=== PATIENT | male | born 1970 ===

== ENCOUNTER 2021-02-16 10:35 | Emergency (ER) | payer SELFPAY ==
[~2021-02-16] VITALS: Ht 177.8 cm; Wt 105.6 kg
[2021-02-16 10:40] VITALS: BP 184/93
[2021-02-16] MEDS ORDERED: DIPH,PERTUSS(ACELL),TET VAC/PF 0.5 ML IM-VACC ONE ×2 (11:00→11:52)
--- NOTE | 2021-02-16 12:05 | NUR ---
Patient given discharge instructions and prescription and they have confirmed that they understand the instructions. Patient stable and ambulatory with steady gait from ED to private vehicle with family member.
== END 2021-02-16 12:06 | disposition home or self-care (01) ==
LOC: ED 12:00
DX: S06.0X0A Concussion without loss of consciousness, initial encounter (principal); S16.1XXA Strain of muscle, fascia and tendon at neck level, initial encounter; M47.812 Spondylosis without myelopathy or radiculopathy, cervical region; E03.9 Hypothyroidism, unspecified; W18.30XA Fall on same level, unspecified, initial encounter; Y93.89 Activity, other specified; Y92.828 Other wilderness area as the place of occurrence of the external cause; Y99.8 Other external cause status
CPT/HCPCS: 70450; 72125; 90471; 90715